=== PATIENT | male | born 1960 | race Caucasian/White ===

== ENCOUNTER 2017-07-03 21:09 | Emergency (ER) | payer BC ==
[~2017-07-03] VITALS: Ht 182.9 cm; Wt 106.1 kg
[2017-07-03 21:46] LABS: HEMATOCRIT 49.5 % (38.0-50.0); HEMOGLOBIN 17.8 G/DL (12.5-16.6); MCH 32.7 PG (29.0-34.0); PLATELET COUNT 214 K/uL (156-360); RBC DIS.WIDTH-CV 11.8 % (11.8-14.6); RBC DIS.WIDTH-SD 39.1 % (39-53); RED BLOOD COUNT 5.44 M/uL (4.00-5.50); WHITE BLOOD COUNT 9.1 K/uL (4.1-10.2)
[2017-07-03 22:05] LABS: CHLORIDE 105 mEq/L (99-109); SODIUM 141 mEq/L (136-147)
[2017-07-03 22:06] LABS: GLUCOSE 102 mg/dL (70-99)
[2017-07-03 22:10] LABS: GFR ESTIMATE (CALCULATED) > 59 mL/min/ (58.99-99999)
[2017-07-03 22:11] LABS: UREA NITROGEN (BUN) 17 mg/dL (9-23)
[2017-07-03 22:12] LABS: TROP-I INTERPRETATION NEGATIVE; TROPONIN-I < 0.01 ng/mL (0.0-0.30)
[2017-07-03 22:47] LABS: D-DIMER ELISA < 150.00 ng/mLDDU (<230)
[2017-07-03 23:50] LABS: TROP-I INTERPRETATION NEGATIVE; TROPONIN-I < 0.01 ng/mL (0.0-0.30)
[2017-07-04 00:24] VITALS: BP 141/99
== END 2017-07-04 00:25 | disposition home or self-care (01) ==
LOC: EME 21:09
PROVIDERS: Emergency Medicine
DX: R07.9 Chest pain, unspecified (principal); K21.9 Gastro-esophageal reflux disease without esophagitis; E78.5 Hyperlipidemia, unspecified; R03.0 Elevated blood-pressure reading, without diagnosis of hypertension
CPT/HCPCS: 71046; 80048; 84484; 85027; 85379; 93005; 99281; 99284